=== PATIENT | male | born 1990 | race Two or more races ===

== ENCOUNTER → 2022-01-26 13:54 | Outpatient (CLI) | payer OTHER, SELFPAY ==
--- NOTE | ~2022-01-26 | US_ITS ---
EXAMINATION: US soft tissue lower back DATE: 01/26/2022 14:09 INDICATION: Left back mass. TECHNIQUE: Multiple grayscale and Doppler ultrasound images of the left posterior thorax were obtaine d. COMPARISON: CT abdomen and pelvis 02/13/2019 FINDINGS: In the patient's area of concern in the left posterior thorax, there is a 2.5 x 1.2 x 1.9 c m subcutaneous mass that demonstrates equal echogenicity and echotexture to normal subcutaneous fat, consistent with a lipoma. IMPRESSION: 1. 2.5 cm subcutaneous lipoma in left posterior thorax. Reviewed, dictated and finalized at location A.
== END ==
PROVIDERS: PCP Surgery; Visit Provider Surgery
DX: R22.2 Localized swelling, mass and lump, trunk (principal)
CPT/HCPCS: 76705